=== PATIENT | male | born 1960 | race Asian ===

== ENCOUNTER 2023-05-12 19:00 | Inpatient (IN) | payer MEDICARE, BC ==
[~2023-05-12] VITALS: Ht 165.1 cm; Wt 72.3 kg
[2023-05-12] MEDS ORDERED: SODIUM CHLORIDE 0.9% 1,000 ML IV ONE ×2 (19:30→21:00)
[2023-05-12 19:55] VITALS: PULSE 55; RESP 12; O2SAT 98
[2023-05-12 20:13] LABS: Basophils # (auto) 0 10 ^3/uL (0-0.2); Basophils % (auto) 0.4 % (0.0-2.0); Eosinophils # (auto) 0 10 ^3/uL (0-0.8); Eosinophils % (auto) 0.2 % (0.0-7.0); Hematocrit 39.6 % (41.0-53.0); Hemoglobin 13.2 g/dL (13.5-17.5); Lymphocytes # (auto) 0.7 10 ^3/uL (0.4-5.4); Lymphocytes % (auto) 8.2 % (10.0-50.0); Mean Corpuscular Hgb Conc. 33.2 g/dL (32.0-36.0); Mean Corpuscular Volume 93.3 fL (80.0-100.0); Monocytes # (auto) 0.5 10 ^3/uL (0-1.3); Monocytes % (auto) 5.5 % (0.0-12.0); Neutrophils # (auto) 7.1 10 ^3/uL (1.6-8.6); Neutrophils % (auto) 85.7 % (37.0-80.0); Red Blood Cells 4.24 10^6/uL (4.5-5.90); Red Cell Distribution Width 12.8 % (11.8-14.3); White Blood Cell 8.3 10^3/uL (4.4-10.8)
[2023-05-12 20:29] LABS: Alanine Aminotransferase 42 U/L (7-40); Albumin 4.4 g/dL (3.2-4.8); Alkaline Phosphatase 54 U/L (46-116); Anion Gap 6 (5-15); Aspartate Aminotransferase 54 U/L (13-40); BUN/Creatinine Ratio 14.6 (10.0-20.0); Blood Urea Nitrogen 23 mg/dL (9-23); Calcium 9.3 mg/dL (8.7-10.4); Carbon Dioxide 27 mmol/L (20-30); Chloride 109 mmol/L (98-107); Glucose 141 mg/dL (74-106); Sodium 142 mmol/L (136-145)
[2023-05-12 20:30] LABS: Total Protein 6.7 g/dL (5.7-8.2)
[2023-05-12 21:35] LABS: COVID19 ANTIGEN SOFIA FIA NEGATIVE (NEGATIVE); Rapid Influenza A Negative (Negative); Rapid Influenza B Negative (Negative)
[2023-05-12] MEDS ORDERED: ALBUTEROL SULF 2.5 MG/0.5ML(0.5%) NEB SOLN NEB ONE (21:45)
[2023-05-12] MEDS ORDERED: GLUCAGON EMERG KIT 1mg/1ml IV ONE (21:45)
[2023-05-12] MEDS ORDERED: ASPirin 325 MG TAB PO ONE (22:00)
[2023-05-12] MEDS ORDERED: ATORVASTATIN 20 MG TAB PO ONE (22:00)
[2023-05-12] MEDS ORDERED: ONDANSETRON HCL 4 MG/2 ML VIAL IV PRN (22:00)
[2023-05-12] MEDS ORDERED: ATORVASTATIN 20 MG TAB PO SCH (22:00)
[2023-05-12] MEDS ORDERED: ENOXAPARIN SOD 80 MG/0.8ML SYRINGE SC ONE (22:00)
[2023-05-12] MEDS ORDERED: NITROGLYCERIN 0.4 MG SL TAB SL PRN (22:00)
[2023-05-12] MEDS ORDERED: MORPHINE SULFATE INJ 2 MG/ml SYRG IV PRN (22:00)
[2023-05-12] MEDS: PHENYLEPHRINE IV 250 ML IV SCH (22:23)
[2023-05-12] MEDS ORDERED: HEPARIN SODIUM (PORCINE) 5000 UNITS/ML 1ML VIAL IV ONE (22:30)
[2023-05-12 23:00] VITALS: PULSE 44; RESP 20; O2SAT 97
[2023-05-12 23:05] LABS: INR 1.05 (0.9-1.15); Partial Thromboplastin Time 25.4 SEC (24.5-34.5)
[2023-05-12] MEDS: HEPARIN DRIP/D5W 100UNITS/ML 250 ML IV SCH (23:39)
[2023-05-13] VITALS (59 sets, daily range): BP systolic 80–163; BP diastolic 45–83; PULSE 37–92; RESP 0–21; TEMP 98.1–99; O2SAT 89–100
[2023-05-13 03:14] LABS: Urine Bacteria NONE SEEN /hpf (None Seen); Urine Blood TRACE /uL (Negative); Urine Clarity HAZY (Clear); Urine Color Yellow (Yellow); Urine Hyaline Cast MANY /lpf (0 - 2); Urine Mucus MODERATE (None Seen); Urine Protein, UAD 2+ (Negative); Urine Specific Gravity 1.033 (1.001-1.035); Urine WBC 4 /hpf (0 - 3)
[2023-05-13 04:01] LABS: Basophils # (auto) 0 10 ^3/uL (0-0.2); Basophils % (auto) 0.3 % (0.0-2.0); Eosinophils # (auto) 0 10 ^3/uL (0-0.8); Hematocrit 35.8 % (41.0-53.0); Lymphocytes # (auto) 0.7 10 ^3/uL (0.4-5.4); Lymphocytes % (auto) 9.8 % (10.0-50.0); Mean Corpuscular Hemoglobin 31.5 pg (28.0-32.0); Mean Corpuscular Hgb Conc. 33.5 g/dL (32.0-36.0); Mean Corpuscular Volume 94.1 fL (80.0-100.0); Monocytes # (auto) 0.5 10 ^3/uL (0-1.3); Monocytes % (auto) 7.3 % (0.0-12.0); Neutrophils # (auto) 6.2 10 ^3/uL (1.6-8.6); Neutrophils % (auto) 82.6 % (37.0-80.0); Red Cell Distribution Width 13.1 % (11.8-14.3); White Blood Cell 7.5 10^3/uL (4.4-10.8)
[2023-05-13 04:15] LABS: INR 1.09 (0.9-1.15); Partial Thromboplastin Time 68.7 SEC (24.5-34.5); Prothrombin Time 11.4 sec (9.3-11.8)
[2023-05-13 04:17] LABS: Alanine Aminotransferase 49 U/L (7-40); Albumin 3.9 g/dL (3.2-4.8); Alkaline Phosphatase 47 U/L (46-116); Anion Gap 6 (5-15); Aspartate Aminotransferase 147 U/L (13-40); BUN/Creatinine Ratio 14.8 (10.0-20.0); Bilirubin, Total 1.1 mg/dL (0.2-1.0); Blood Urea Nitrogen 16 mg/dL (9-23); Calcium 8.3 mg/dL (8.7-10.4); Carbon Dioxide 25 mmol/L (20-30); Chloride 112 mmol/L (98-107); Glucose 137 mg/dL (74-106); Potassium 3.9 mmol/L (3.5-5.1); Sodium 143 mmol/L (136-145); Total Protein 6.2 g/dL (5.7-8.2)
[2023-05-13] MEDS ORDERED: DOPamine 1600MCG/ML D5W 250 ML IV ONE (04:42)
[2023-05-13] MEDS: PHENYLEPHRINE IV 250 ML IV SCH ×2 (06:20→14:40)
[2023-05-13] MEDS: DOPamine 1600MCG/ML D5W 250 ML IV SCH ×3 (06:58→20:15)
[2023-05-13 08:01] LABS: Triglycerides 28 mg/dL (< 150)
[2023-05-13 08:02] LABS: LDL Cholesterol 73 mg/dL (< 100)
[2023-05-13 08:03] LABS: Cholesterol 139 mg/dL (< 200); HDL Cholesterol 53 mg/dL (40-59)
[2023-05-13] MEDS ORDERED: LIDOCAINE 2%HCL (LOCAL ANESTH.) INJ 20ML MDV ONE (08:13)
[2023-05-13] MEDS ORDERED: MIDAZOLAM HCL 2MG/2ML 2ml VIAL (1mg/ml) ONE (08:14)
[2023-05-13] MEDS ORDERED: IODIXANOL 320MG/ML 100ML BTL IV ONE (08:14)
[2023-05-13] MEDS ORDERED: fentaNYL CITRATE 100 MCG/2 ML VL ONE (08:14)
[2023-05-13] MEDS ORDERED: FAMOTIDINE (10MG/ML) 2ML VL IV ONE (08:15)
[2023-05-13] MEDS ORDERED: VERAPAMIL 2.5MG/ML INJ 2ML VIAL IV ONE (08:16)
[2023-05-13] MEDS ORDERED: HEPARIN SODIUM (PORCINE) 5000 UNITS/ML 1ML VIAL ONE (08:16)
[2023-05-13] MEDS ORDERED: ASPirin 81 mg TAB PO SCH ×2 (10:00)
[2023-05-13] MEDS ORDERED: CLOPIDOGREL BISULFATE 75 MG TAB PO SCH (10:00)
[2023-05-13 10:40] LABS: INR 1.08 (0.9-1.15); Partial Thromboplastin Time 54.1 SEC (24.5-34.5); Prothrombin Time 11.3 sec (9.3-11.8)
[2023-05-13] MEDS ORDERED: OPTISON 3ml Vial for INJ IV ONE (11:12)
[2023-05-13] MEDS: EPTIFIBATIDE DRIP(0.75MG/ML) 100 ML IV SCH ×2 (11:45→18:59)
[2023-05-13 18:42] LABS: INR 1.08 (0.9-1.15); Partial Thromboplastin Time 63.5 SEC (24.5-34.5); Prothrombin Time 11.3 sec (9.3-11.8)
[2023-05-13] MEDS: HEPARIN DRIP/D5W 100UNITS/ML 250 ML IV SCH (20:34)
[2023-05-13] MEDS ORDERED: ATORVASTATIN 20 MG TAB PO SCH (22:00)
== END 2023-05-13 20:28 | disposition short-term general hospital (02) | DRG 280 ==
LOC: ER 19:00 → TELE 22:03 → ICU WEST 05-13 02:30
PROVIDERS: ADMIT Nurse Practitioner; ATTEND Internal Medicine
PROC: 4A023N7 Measurement of Cardiac Sampling and Pressure, Left Heart, Percutaneous Approach (ICD-10-PCS; principal; 2023-05-13)
PROC: B211YZZ Fluoroscopy of Multiple Coronary Arteries using Other Contrast (ICD-10-PCS; 2023-05-13)
DX: I21.4 Non-ST elevation (NSTEMI) myocardial infarction (principal); N17.0 Acute kidney failure with tubular necrosis; R57.0 Cardiogenic shock; Z20.822 Contact with and (suspected) exposure to COVID-19; N18.9 Chronic kidney disease, unspecified; E78.5 Hyperlipidemia, unspecified; R00.1 Bradycardia, unspecified; I12.9 Hypertensive chronic kidney disease with stage 1 through stage 4 chronic kidney disease, or unspecified chronic kidney disease; R74.01 Elevation of levels of liver transaminase levels; F11.90 Opioid use, unspecified, uncomplicated; Z95.1 Presence of aortocoronary bypass graft
CPT/HCPCS: 36415; 71045; 80053; 80061; 81001; 83036; 83605; 83735; 83880; 84443; 84484; 85025; 85610; 85730; 87040; 87081; 87426; 87804; 93005; 93306; 93458; 94640; 99152; G0378; J2250; J2405; J3490; Q9956; Q9967